=== PATIENT | female | born 2000 | race Caucasian/White ===

== ENCOUNTER 2022-10-11 02:18 | Emergency (ER) | payer SELFPAY ==
[~2022-10-11] VITALS: Ht 154.9 cm; Wt 98.0 kg
[2022-10-11 02:35] VITALS: BP 122/59
== END 2022-10-11 05:05 | disposition left against medical advice (07) ==
LOC: ER 02:18
DX: Z53.21 Procedure and treatment not carried out due to patient leaving prior to being seen by health care provider (principal); I49.9 Cardiac arrhythmia, unspecified
CPT/HCPCS: 93005